=== PATIENT | female | born 1955 ===

== ENCOUNTER 2018-07-02 04:40 | Emergency (ER) | payer MEDICAID, OTHER ==
[2018-07-02 04:41] VITALS: BMI 29.3
[2018-07-02 04:53] VITALS: RESP 18; TEMP 98
--- NOTE | 2018-07-02 05:22 | ED PDOC ---
Arrival/HPI - General Historian: Patient - History of Present Illness Narrative History of Present Illness (Text): 07/02/18 06:03 Patient is a 63 year old female with past medical history of hypertension presenting s/p fall where she tripped and hit the side of her foot on a table. She states she is having trouble bearing weight on her toes. Denies headache, dizziness, nausea, vomiting, chest pain, shortness of breath, abdominal pain, diarrhea, dysuria, or any other complaints. Time/Duration: 4-6 hours Symptom Onset: Sudden Symptom Course: Unchanged Quality: Stabbing <Judy Moya - Last Filed: 07/02/18 06:14> Past Medical History - Provider Review Nursing Documentation Reviewed: Yes - Cardiac Hx Cardiac Disorders: Yes Hx Hypertension: Yes Hx Peripheral Edema: Yes - Pulmonary Hx Respiratory Disorders: No - Neurological Hx Neurological Disorder: No - HEENT Hx HEENT Disorder: Yes Other/Comment: Vocal Cord Lesion - Renal Hx Renal Disorder: No - Endocrine/Metabolic Hx Endocrine Disorders: No - Hematological/Oncological Hx Blood Disorders: No - Integumentary Hx Dermatological Disorder: No - Musculoskeletal/Rheumatological Hx Musculoskeletal Disorders: Yes Hx Arthritis: Yes (HANDS MOSTLY) - Gastrointestinal Hx Gastrointestinal Disorders: Yes Hx Gastroesophageal Reflux: Yes - Genitourinary/Gynecological Hx Genitourinary Disorders: No - Psychiatric Hx Psychophysiologic Disorder: No Hx Substance Use: No - Surgical History Hx Tubal Ligation: Yes Other/Comment: HX: TUMMY TUCK. HX: BREAST LIFT - Anesthesia Hx Anesthesia: Yes Hx Anesthesia Reactions: Yes (Vomiting) Hx Malignant Hyperthermia: No <Judy Moya - Last Filed: 07/02/18 06:14> Family/Social History - Physician Review Nursing Documentation Reviewed: Yes Family/Social History: No Known Family HX Smoking Status: Former Smoker Hx Alcohol Use: Yes Frequency of alcohol use: Socially Hx Substance Use: No <Judy Moya - Last Filed: 07/02/18 06:14> Allergies/Home Meds <Judy Moya - Last Filed: 07/02/18 06:14> <Chance Poole - Last Filed: 07/02/18 06:24> Allergies/Adverse Reactions: Allergies No Known Allergies Allergy (Verified 02/12/16 14:24) Home Medications: Home Meds Medication Instructions Recorded Confirmed amLODIPine [Norvasc] 10 mg PO DAILY 07/02/18 07/02/18 Review of Systems - Physician Review All systems were reviewed & negative as marked: Yes - Review of Systems Respiratory: Normal Cardiovascular: Normal Gastrointestinal: Normal Musculoskeletal: Other (toe pain) <Judy Moya - Last Filed: 07/02/18 06:14> Physical Exam Vital Signs Reviewed: Yes Vital Signs Temp Pulse Resp BP Pulse Ox 07/02/18 04:49 98.0 F 97 H 18 157/108 H 99 Temperature: Afebrile Blood Pressure: Hypertensive Pulse: Regular Respiratory Rate: Normal Appearance: Positive for: Non-Toxic Pain Distress: None Mental Status: Positive for: Alert and Oriented X 3 - Systems Exam Head: Present: Atraumatic, Normocephalic Pupils: Present: PERRL Extroacular Muscles: Present: EOMI Conjunctiva: Present: Normal Mouth: Present: Moist Mucous Membranes Respiratory/Chest: Present: Clear to Auscultation, Good Air Exchange. No: Respiratory Distress, Accessory Muscle Use Cardiovascular: Present: Regular Rate and Rhythm, Normal S1, S2. No: Murmurs Abdomen: No: Tenderness, Distention, Peritoneal Signs Lower Extremity: Present: Normal Inspection, NORMAL PULSES, Tenderness (left 5th toe), Neurovascularly Intact. No: Erythema Neurological: Present: GCS=15, CN II-XII Intact, Speech Normal Skin: Present: Warm, Dry, Normal Color. No: Rashes Psychiatric: Present: Alert, Oriented x 3, Normal Insight, Normal Concentration <Judy Moya L - Last Filed: 07/02/18 06:14> Vital Signs Temp Pulse Resp BP Pulse Ox 07/02/18 04:49 98.0 F 97 H 18 157/108 H 99 <Chance Poole T - Last Filed: 07/02/18 06:24> Medical Decision Making ED Course and Treatment: 07/02/18 06:19 Impression: 63 year old female with foot pain Plan: - Toradol - Foot x-ray - Reassess and disposition Prior visits: Notes and results from previous visits were reviewed. Progress Notes: 07/02/18 06:19 Patient states her pain has improved. Imaging reviewed. Patient hemodynamically stable and optimized for discharge to follow up with primary medical doctor. Patient in agreement with plan of management. - RAD Interpretation Narrative RAD Interpretations (Text): 07/02/18 06:21 Foot x-ray: no acute fractures Radiology Orders: 07/02/18 05:03 FOOT LEFT 3 VIEWS ROUTINE [RAD] Stat - Medication Orders Current Medication Orders: Ketorolac Tromethamine (Toradol) 30 mg IM STAT STA Stop: 07/02/18 05:04 <Judy Moya - Last Filed: 07/02/18 06:14> ED Course and Treatment: Seen and examined with resident. 63 y/o F p/w foot pain. On exam, no swelling or ecchymosis. - RAD Interpretation Radiology Orders: 07/02/18 05:03 FOOT LEFT 3 VIEWS ROUTINE [RAD] Stat - Medication Orders Current Medication Orders: Discontinued Medications Ketorolac Tromethamine (Toradol) 30 mg IM STAT STA Stop: 07/02/18 05:04 Last Admin: 07/02/18 05:17 Dose: 30 mg MAR Pain Assessment Document 07/02/18 05:17 AD (Rec: 07/02/18 05:41 AD [facility] [place] Pain Reassessment Is this a pain reassessment? No Presence of Pain Presence of Pain Yes Pain Scale Used Protocol: PSCALES Pain Scale Used Numeric Description Intensity of Pain at present 8 Pain Behavior Facial Grimacing IM Administration Charges Document 07/02/18 05:17 AD (Rec: 07/02/18 05:41 AD [facility] [id number]) Injection Site MAR Injection Site Left Deltoid Charges for Administration # of IM Administrations 1 <Chance Poole - Last Filed: 07/02/18 06:24> - Scribe Statement The provider has reviewed the documentation as recorded by the Scribe Patient Seen with Provider In agreement with resident note which contains more details about the patient. Patient seen and evaluated with resident. Came up with plan and treatment together. <Chance Poole - Last Filed: 07/02/18 06:24> Disposition/Present on Arrival - Present on Arrival Any Indicators Present on Arrival: No History of DVT/PE: No History of Uncontrolled Diabetes: No Urinary Catheter: No History of Decub. Ulcer: No History Surgical Site Infection Following: None - Disposition Have Diagnosis and Disposition been Completed?: Yes Disposition Time: 06:04 <Judy Moya - Last Filed: 07/02/18 06:14> <Chance Poole - Last Filed: 07/02/18 06:24> - Disposition Diagnosis: Foot pain, left Disposition: HOME/ ROUTINE Condition: STABLE Discharge Instructions (ExitCare): Foot Sprain (DC) Additional Instructions: Follow up with your primary medical doctor within one week Resume home medications as prescribed Return to ED if symptoms return or worsen Referrals: Eliud Kan MD [Primary Care Provider] - Follow up with primary Chata Vazquez MD [Staff Provider] - Follow up with primary
[2018-07-02 06:17] VITALS: BP 145/82; PULSE 80; O2SAT 100
--- NOTE | 2018-07-02 17:55 | RAD ---
Date of service: 07/02/2018 PROCEDURE: Left Foot Radiographs. HISTORY: s/p trauma, 5th toe pain COMPARISON: None. TECHNIQUE: 3 views obtained. FINDINGS: BONES: No acute fracture. JOINTS: Arthritis at 1st MTP articulation. Multiple ossific densities are seen about the joint. The possibility of calcifying tophus must be considered. Correlate with the urate levels. No other abnormal joints identified. SOFT TISSUES: Normal. OTHER FINDINGS: None. IMPRESSION: Possible gout at MTP 1. Correlate with serum urate. Otherwise unremarkable.
== END 2018-07-02 06:11 | disposition home or self-care (01) ==
LOC: ED 04:40
DX: M79.672 Pain in left foot (principal); I10 Essential (primary) hypertension; Z87.891 Personal history of nicotine dependence
CPT/HCPCS: 73630; 96372; 99283; J1885